=== PATIENT | male | born 2000 | race Two or more races ===

== ENCOUNTER 2020-03-10 05:09 | Emergency (ER) | payer MEDICAID ==
[2020-03-10] MEDS ORDERED: ACETAMINOPHEN 325 MG TABLET PO ONE (05:27)
--- NOTE | 2020-03-10 08:19 | RADIOLOGY REPORT (SQ) ---
EXAM DESCRIPTION: HAND RIGHT 3 VIEWS IMAGES COMPLETED DATE/TIME: 03/10/2020 7:45 am REASON FOR STUDY: LACERATIONS COMPARISON: None. EXAM PARAMETERS: NUMBER OF VIEWS: Three views. TECHNIQUE: AP, lateral and oblique radiographic images acquired of the right hand. LIMITATIONS: Limited secondary to patient positioning. FINDINGS: MINERALIZATION: Normal. BONES: No acute fracture or dislocation. No worrisome bone lesions. JOINTS: No effusions. SOFT TISSUES: No soft tissue swelling. No foreign body. OTHER: No other significant finding. IMPRESSION: Limited study. No radiopaque foreign bodies. No fracture. TECHNICAL DOCUMENTATION: JOB ID: [id number] 2010 [employer]- All Rights Reserved Reading location - IP/workstation name: [email or web address]
--- NOTE | 2020-03-10 08:20 | RADIOLOGY REPORT (SQ) ---
EXAM DESCRIPTION: HAND LEFT 3 VIEWS IMAGES COMPLETED DATE/TIME: 03/10/2020 7:45 am REASON FOR STUDY: LACERATIONS COMPARISON: None. EXAM PARAMETERS: NUMBER OF VIEWS: Three views. TECHNIQUE: AP, lateral and oblique radiographic images acquired of the left hand. LIMITATIONS: None. FINDINGS: MINERALIZATION: Normal. BONES: No acute fracture or dislocation. No worrisome bone lesions. JOINTS: No effusions. SOFT TISSUES: No soft tissue swelling. No foreign body. OTHER: No other significant finding. IMPRESSION: NEGATIVE STUDY OF THE LEFT HAND. NO RADIOGRAPHIC EVIDENCE OF ACUTE INJURY. TECHNICAL DOCUMENTATION: JOB ID: [id number] 2010 [employer]- All Rights Reserved Reading location - IP/workstation name: [email or web address]
[2020-03-10 09:46] VITALS: BP 119/73
[2020-03-10] MEDS ORDERED: DIPH/PERTUSS(ACELL)/TETANUS VAC/PF 0.5 ML SYR (>=10YO) IM ONE (11:20)
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
[2020-03-10] MEDS ORDERED: LIDOCAINE 1% INJ-PF (10 MG/ML) 30 ML SDV INJ ONE (11:30)
[2020-03-10] MEDS ORDERED: IBUPROFEN 800 MG TABLET PO ONE (11:35)
[2020-03-10] MEDS ORDERED: AMOXICILLIN TR/POT CLAVULANATE 875-125 MG TAB PO ONE (11:35)
== END 2020-03-10 14:08 | disposition home or self-care (01) ==
LOC: ER 05:09
DX: S61.011A Laceration without foreign body of right thumb without damage to nail, initial encounter (principal); S61.459A Open bite of unspecified hand, initial encounter; S20.411A Abrasion of right back wall of thorax, initial encounter; Y04.1XXA Assault by human bite, initial encounter; Z23 Encounter for immunization; E78.00 Pure hypercholesterolemia, unspecified
CPT/HCPCS: 99283; 90471; 73130 ×2; 90715; 64450; J3490 ×4

== ENCOUNTER 2020-03-26 22:40 | Emergency (ER) | payer MEDICAID ==
[2020-03-26] MEDS ORDERED: NORMAL SALINE 1000 ML 1,000 ML IV ONE (22:58)
--- NOTE | 2020-03-26 23:00 | ER Document Report ---
ED General - General Chief Complaint: Unresponsive Stated Complaint: POSSIBLE OVERDOSE Time Seen by Provider: 03/26/20 22:50 Notes: Patient is a 19-year-old male who comes emergency department by EMS from home for chief complaint of possible overdose. EMS states that friends called, when they arrived patient was confused in appearance, vomited all over his clothes, and then appeared to have his eyes rolled back and shake with convulsions were suggestive of seizure like activity. Patient was given 5 mg IM Versed. Shaking activity lasted for less than 1 minute and there was no reported trauma. Friends per EMS report that they think he took "CBD Gummies" and they do not believe he took anything else but they're unsure. No reported medical history or daily medications that EMS is aware of. Patient is arousable to stimuli but very sedated on evaluation and is unable to give me any history. - Related Data Allergies/Adverse Reactions: No Known Allergies Allergy (Unverified 03/10/20 05:20) Past Medical History - General Information source: Emergency Med Personnel - Social History Smoking Status: Unknown if Ever Smoked Drug Abuse: Marijuana Lives with: Friend Family History: Reviewed & Not Pertinent Patient has homicidal ideation: No Surgical Hx: Negative Review of Systems - Review of Systems Constitutional: No symptoms reported EENT: No symptoms reported Cardiovascular: No symptoms reported Respiratory: No symptoms reported Gastrointestinal: See HPI Genitourinary: No symptoms reported Male Genitourinary: No symptoms reported Musculoskeletal: No symptoms reported Skin: No symptoms reported Hematologic/Lymphatic: No symptoms reported Neurological/Psychological: See HPI Physical Exam - Vital signs Vitals: Temp 97.7 F 03/26/20 22:40 - Notes Notes: GENERAL: Very sedated. Clothing is covered with vomit. Arousable to painful stimuli. HEAD: Normocephalic, atraumatic. EYES: Pupils equal, round, and reactive to light. Extraocular movements intact. ENT: Oral mucosa moist, tongue midline. Oropharynx unremarkable. Airway patent. NECK: Full range of motion. Supple. Trachea midline. No lymphadenopathy. LUNGS: Clear to auscultation bilaterally, no wheezes, rales, or rhonchi. No respiratory distress. Non-tender chest wall. No signs of trauma. HEART: Regular rate and rhythm. No murmur ABDOMEN: Soft, non-tender. Non-distended. EXTREMITIES: Moves all 4 extremities spontaneously. No edema, normal radial and dorsalis pedis pulses bilaterally. No cyanosis. BACK: No signs of trauma. No cervical, thoracic, lumbar midline tenderness. No saddle anesthesia, normal distal neurovascular exam. Moves all extremities in full range of motion. NEUROLOGICAL: Arousable to painful stimuli, slurred speech, limited exam due to sedation SKIN: Warm, dry, normal turgor. No rashes or lesions noted. Course - Re-evaluation Re-evalutation: On initial evaluation patient is very sedated from the Versed but is still responsive to painful stimuli. No apnea, no hypoxia, no signs of trauma. Patient will be reevaluated. Work-up pending, patient will remain on the monitor. CT of the head unremarkable, CBC, chemistry unremarkable, alcohol negative, nonspecific work-up. 03/27/20 01:30 EST Patient is now arousable to just soft voice, he asked where he was, he states he does not recall what happened or how he got here. He denies any complaints or current pain, states he just feels tired. Patient will continue to be monitored because he is too drowsy to stand at this time. Patient reevaluate again. Patient is now awake on his own, we discussed what happened last night. He states again that he only took CBD and he does not know what happened after that. Patient states he has never had a seizure and he does not have any medical history. Patient denies again recreational drugs as well. He states he feels much better now and he is ready to go home. I feel that patient might of had shaking activity after vomiting and vasovagal syncope, I am not certain that patient had a seizure and therefore patient will not be placed on seizure precautions. Patient does agree to follow-up with primary care. I did discuss return precautions in detail. I did discuss the patient with Dr. Jasso. Patient states appreciation for care, called a ride, went home with a ride. - Vital Signs Vital signs: Temp Pulse Resp BP Pulse Ox 98.2 F 58 L 14 102/64 100 03/27/20 05:20 03/27/20 05:20 03/27/20 05:20 03/27/20 05:20 03/27/20 05:20 - Laboratory Result Diagrams: 03/26/20 23:00 10/31/20 23:00 Laboratory results interpreted by me: 03/26/20 03/26/20 23:00 23:00 Lymph % (Auto) 12.8 L Seg Neutrophils % 80.3 H Glucose 128 H Lipase 19.5 L - EKG Interpretation by Me Additional EKG results interpreted by me: EKG shows sinus rhythm at a rate of 60, QTc 448, normal axis, no T wave inversions or ST segment changes in consecutive leads Discharge - Discharge Clinical Impression: Substance abuse, Observed seizure-like activity Vomiting Qualifiers: Vomiting type: unspecified Vomiting Intractability: unspecified Nausea presence: with nausea Qualified Code(s): R11.2 - Nausea with vomiting, unspecified Altered mental status Qualifiers: Altered mental status type: transient alteration of awareness Qualified Code(s): R40.4 - Transient alteration of awareness Condition: Stable Disposition: HOME, SELF-CARE Additional Instructions: Avoid any recreational/illegal substance. These have a variety of consequences and side effects and can be extremely dangerous. Your vomiting and symptoms tonight were most likely side effects from what you ingested and you briefly passing out. Your test today did not show concerning findings. Follow-up with primary care for additional management. Return if you worsen including having a seizure, fever, severe headache, passing out again, vomiting, or any other concerning or worsening symptoms. Forms: Return to Work
[2020-03-26 23:13] LABS: ABSOLUTE EOSINOPHILS # (AUTO) 0.1 10^3/uL (0.0-0.6); ABSOLUTE LYMPHOCYTES (AUTO) 0.9 10^3/uL (0.5-4.7); ABSOLUTE MONOCYTES (AUTO) 0.4 10^3/uL (0.1-1.4); ABSOLUTE NEUT (AUTO) 5.5 10^3/uL (1.7-8.2); BASOPHILS % (AUTO) 0.5 % (0-2); EOSINOPHILS % (AUTO) 0.8 % (0-6); HEMOGLOBIN 14.2 g/dL (13.5-17.0); LYMPHOCYTES % (AUTO) 12.8 % (13-45); MEAN CORPUSCULAR HEMOGLOBIN 31.2 pg (27.0-33.4); MEAN CORPUSCULAR HGB CONC 34.6 g/dL (32.0-36.0); MEAN CORPUSCULAR VOLUME 90 fl (80-97); MONOCYTES % (AUTO) 5.6 % (3-13); PLATELET COUNT 195 10^3/uL (150-450); RED BLOOD COUNT 4.55 10^6/uL (4.35-5.55); RED CELL DISTRIBUTION WIDTH 12.5 % (11.5-14.0); SEGMENTED NEUTROPHILS % (AUTO) 80.3 % (42-78); TOTAL CELLS COUNTED % (AUTO) 100 %; WHITE BLOOD COUNT 6.8 10^3/uL (4.0-10.5)
[2020-03-26 23:27] LABS: ALKALINE PHOSPHATASE 84 U/L (38-126); ANION GAP 9 (5-19); ASPARTATE AMINO TRANSFERASE 22 U/L (17-59); BILIRUBIN,TOTAL 0.4 mg/dL (0.2-1.3); BLOOD UREA NITROGEN 11 mg/dL (7-20); CALCIUM 8.9 mg/dL (8.4-10.2); CARBON DIOXIDE 26 mmol/L (22-30); CHLORIDE 104 mmol/L (98-107); GLUCOSE 128 mg/dL (75-110); POTASSIUM 4.1 mmol/L (3.6-5.0); TOTAL PROTEIN 6.6 g/dL (6.3-8.2)
[2020-03-26 23:29] LABS: ALCOHOL < 10 mg/dL (NONE DETECTED)
--- NOTE | 2020-03-26 23:40 | RADIOLOGY REPORT (SQ) ---
CT of the head: 03/26/2020 10:38 PM CDT HISTORY: 19-year-old patient with overdose, altered mental status, confusion. COMPARISON: None available TECHNIQUE: Multiple axial contiguous images were obtained through the head without intravenous contrast administered. This exam was performed according to our departmental dose-optimization program, which includes automated exposure control, adjustment of the mA and/or KV according to the patient's size and/or use of iterative reconstruction technique. FINDINGS: The ventricles are within normal limits for size. Both orbits appear unremarkable. The mastoid air cells appear clear. The visualized paranasal sinuses appear clear. The calvarium is intact. No extra-axial fluid collection is seen. The butler-white matter differentiation is within normal limits. No midline shift or mass effect is apparent. There are no findings to suggest acute intracranial hemorrhage. IMPRESSION: No acute intracranial hemorrhage is seen.
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
[2020-03-27 05:51] VITALS: BP 102/64
--- NOTE | 2020-03-27 08:39 | EKG REPORT ---
SEVERITY:- NORMAL ECG - SINUS RHYTHM : Confirmed by: Harpreet Jaramillo MD 27-Mar-2020 08:38:17
== END 2020-03-27 05:20 | disposition home or self-care (01) ==
LOC: ER 22:40
DX: F12.10 Cannabis abuse, uncomplicated (principal); R11.2 Nausea with vomiting, unspecified; R40.0 Somnolence; R41.3 Other amnesia; R40.4 Transient alteration of awareness; R29.818 Other symptoms and signs involving the nervous system
CPT/HCPCS: 93005; 99285; 96360; 36415; 80307; 83690; 83735; 85025; 80053; 71045; 70450; 93010; J7030